=== PATIENT | female | born 1945 | race Hispanic/Latino ===

== ENCOUNTER 2018-03-01 06:50 | Inpatient (IN) | payer OTHER ==
[2018-03-01 06:56] VITALS: BMI 25.4
[2018-03-01] MEDS ORDERED: Ipratropium 0.02% Inhal Soln (0.5 mg/2.5 ml) UD IH STA (07:29)
[2018-03-01] MEDS ORDERED: Ipratropium 0.02% Inhal Soln (0.5 mg/2.5 ml) UD IH ONE (07:31)
--- NOTE | 2018-03-01 07:38 | ED PDOC ---
Arrival/HPI - General Chief Complaint: Shortness Of Breath Time Seen by Provider: 03/01/18 07:29 Historian: Patient - History of Present Illness Narrative History of Present Illness (Text): 03/01/18 07:20 72 year old female whose PMH includes hypertension, COPD, and celiac disease, who presents to the emergency department complaining of shortness of breath since 4 days ago that has become worse. Patient reports she was on a cruise and her symptom began. Patient denies coughing, fever, chest pain, abdominal pain, headache, dizziness, or other complaints. Time/Duration: < week Symptom Onset: Gradual Symptom Course: Worsening Past Medical History - Provider Review Nursing Documentation Reviewed: Yes - Cardiac Hx Hypertension: Yes - Pulmonary Hx Chronic Obstructive Pulmonary Disease (COPD): Yes - Hematological/Oncological Other/Comment: Celiac Disease - Musculoskeletal/Rheumatological Other/Comment: Sciatica - Psychiatric Hx Substance Use: No Family/Social History - Physician Review Nursing Documentation Reviewed: Yes Family/Social History: Unknown Family HX Smoking Status: Never Smoked Hx Alcohol Use: No Hx Substance Use: No Allergies/Home Meds Allergies/Adverse Reactions: Allergies Penicillins Allergy (Verified 03/01/18 06:57) VOMITING Home Medications: Home Meds Medication Instructions Recorded Confirmed Acetaminophen/Codeine 1 tab PO QID 03/01/18 03/01/18 [Tylenol/Codeine 300 MG/30 MG] Lansoprazole [Prevacid] 30 mg PO DAILY 03/01/18 03/01/18 Tiotropium [Spiriva] 18 mcg IH DAILY 03/01/18 03/01/18 Review of Systems - Review of Systems Constitutional: absent: Fevers Respiratory: SOB. absent: Cough, Sputum Cardiovascular: absent: Chest Pain Gastrointestinal: absent: Abdominal Pain Genitourinary Female: absent: Dysuria Musculoskeletal: absent: Back Pain Skin: absent: Rash Neurological: absent: Headache Endocrine: absent: Diaphoresis Physical Exam Vital Signs Reviewed: Yes Vital Signs Temp Pulse Resp BP Pulse Ox 03/01/18 09:14 89 17 115/54 L 93 L 03/01/18 07:28 25 H 100 03/01/18 07:03 97.6 F 100 H 24 126/77 100 Temperature: Afebrile Blood Pressure: Normal Pulse: Tachycardic Respiratory Rate: Normal Appearance: Positive for: Well-Appearing, Non-Toxic, Comfortable Pain Distress: None Mental Status: Positive for: Alert and Oriented X 3 - Systems Exam Head: Present: Atraumatic, Normocephalic Pupils: Present: PERRL Extroacular Muscles: Present: EOMI Conjunctiva: Present: Normal Respiratory/Chest: Present: Wheezes (scattered expiratory wheezing), Decreased Breath Sounds. No: Clear to Auscultation, Good Air Exchange, Accessory Muscle Use Cardiovascular: Present: Regular Rate and Rhythm, Normal S1, S2. No: Murmurs Abdomen: Present: Normal Bowel Sounds. No: Tenderness, Distention, Peritoneal Signs, Rebound, Guarding Lower Extremity: Present: Normal Inspection, NORMAL PULSES, Normal ROM, Neurovascularly Intact, Capillary Refill < 2 s. No: Edema, CALF TENDERNESS, Cyanosis, Tenderness, Swelling, Erythema, Deformity Neurological: Present: GCS=15, CN II-XII Intact, Speech Normal Skin: Present: Warm, Dry, Normal Color. No: Rashes Psychiatric: Present: Alert, Oriented x 3, Normal Insight, Normal Concentration Medical Decision Making ED Course and Treatment: 03/01/18 Impression: 72 year old female with scattered expiratory wheezing and decreased breath sounds complaining of shortness of breath. Plan: -- EKG -- Chest X-ray -- Labs -- Atrovent -- Reassess and disposition Progress Notes: 03/01/18 EKG: Ordered, reviewed, and independently interpreted the EKG. Rate : 91 BPM Rhythm : NSR Interpretation : Normal axis. QTC 408. No ST or T-wave changes 03/01/18 09:15 Chest X-ray: Creator : Rishabh Jimenez MD FINDINGS: LUNGS: Peribronchial thickening consistent with bronchitis. No evidence of pneumonia PLEURA: No significant pleural effusion identified, no pneumothorax apparent. CARDIOVASCULAR: Normal. OSSEOUS STRUCTURES: No significant abnormalities. VISUALIZED UPPER ABDOMEN: Normal. OTHER FINDINGS: None. IMPRESSION: Peribronchial thickening consistent with bronchitis. No evidence of pneumonia Case discussed with Dr. Valencia who agrees to admit the patient. Came to see patient in the ED. Would like Dr. Recinos for pulmonary consult. Dr. Recinos also saw the patient in the ED. Blood cultures drawn given leukocytosis. No evidence of pneumonia on CXR. - Lab Interpretations Lab Results: 03/01/18 07:28 03/01/18 07:28 Lab Results 03/01/18 07:28: Sodium 142, Chloride 102, Potassium 3.6, Carbon Dioxide 31, Anion Gap 13, BUN 12, Creatinine 0.5 L, Est GFR ( Amer) > 60, Est GFR ( Non-Af Amer) > 60, Random Glucose 135 H, Calcium 9.0, Magnesium 1.8, Lactate Dehydrogenase 657, Total Creatine Kinase 133, Troponin I < 0.01 03/01/18 07:28: pO2 205 H, VBG pH 7.32, VBG pCO2 60.0, VBG HCO3 30.9 H, VBG Total CO2 32.7 H, VBG O2 Sat (Calc) 99.9 H, VBG Base Excess 3.2 H, VBG Potassium 3.6, Sodium 141.0, Chloride 107.0, Glucose 142 H, Lactate 1.2, FiO2 21.0, Venous Blood Potassium 3.6 03/01/18 07:28: WBC 15.6 H, RBC 3.50, Hgb 9.7 L, Hct 31.0 L, MCV 88.6, MCH 27.7 , MCHC 31.3, RDW 15.2 H, Plt Count 340, MPV 8.6, Gran % 94.6 H, Lymph % (Auto) 2.9 L, [place] % (Auto) 2.4, Eos % (Auto) 0.0 L, Baso % (Auto) 0.1, Gran # 14.77 H , Lymph # (Auto) 0.5 L, [place] # (Auto) 0.4, Eos # (Auto) 0.0, Baso # (Auto) 0.01 , Neutrophils % (Manual) 97 H, Lymphocytes % (Manual) 2 L, Monocytes % (Manual) 1, Platelet Evaluation Normal I have reviewed the lab results: Yes - RAD Interpretation Radiology Orders: 03/01/18 07:30 CHEST PORTABLE [RAD] Stat Nanotechnologist: Radiologist - EKG Interpretation Interpreted by ED Physician: Yes Type: 12 lead EKG - Medication Orders Current Medication Orders: Albuterol/Ipratropium (Duoneb 3 Mg/0.5 Mg (3 Ml) Ud) 3 ml IH [id number] CECE Albuterol/Ipratropium (Duoneb 3 Mg/0.5 Mg (3 Ml) Ud) 3 ml IH Q2H PRN PRN Reason: Shortness of Breath Last Admin: 03/01/18 09:42 Dose: 3 ml Budesonide (Pulmicort Respules) 0.5 mg IH [id number] CECE Levofloxacin (Levaquin) 500 mg PO DAILY [facility] PRN Reason: Protocol Methylprednisolone (Solu-Medrol) 40 mg IVP Q6 [facility] Pantoprazole Sodium (Protonix Ec Tab) 40 mg PO DAILY [facility] Tiotropium [place] (Spiriva) 18 mcg IH DAILY [facility] Discontinued Medications Ipratropium [place] (Atrovent) 0.5 mg IH STAT STA Stop: 03/01/18 07:30 Last Admin: 03/01/18 07:47 Dose: 0.5 mg - Scribe Statement The provider has reviewed the documentation as recorded by the Luis Fernando Izquierdo Provider Matthewibe Attestation: All medical record entries made by the Matthewibe were at my direction and personally dictated by me. I have reviewed the chart and agree that the record accurately reflects my personal performance of the history, physical exam, medical decision making, and the department course for this patient. I have also personally directed, reviewed, and agree with the discharge instructions and disposition. Disposition/Present on Arrival - Present on Arrival Any Indicators Present on Arrival: No History of DVT/PE: No History of Uncontrolled Diabetes: No Urinary Catheter: No History of Decub. Ulcer: No History Surgical Site Infection Following: None - Disposition Have Diagnosis and Disposition been Completed?: Yes Diagnosis: Dyspnea, Emphysema of lung Disposition: HOSPITALIZED Disposition Time: 08:21 Condition: STABLE
[2018-03-01 07:53] LABS: BASO # 0.01 K/mm3 (0.0-2.0); BASO % 0.1 % (0.0-3.0); GRAN # 14.77 (1.4-6.5); GRAN % 94.6 % (50.0-68.0); HEMOGLOBIN 9.7 g/dL (12.0-16.0); LYMPH # 0.5 (1.2-3.4); LYMPH % 2.9 % (22.0-35.0); MEAN CELL VOLUME 88.6 fl (80.0-105.0); MEAN CORPUSCULAR HEMOGLOBIN 27.7 pg (25.0-35.0); MEAN CORPUSCULAR HGB CONC 31.3 g/dl (31.0-37.0); MEAN PLATELET VOLUME 8.6 fl (7.0-11.0); MONO # 0.4 (0.1-0.6); MONO % 2.4 % (1.0-6.0); PLATELET COUNT 340 10^3/uL (120.0-450.0); RED CELL DISTRIBUTION WIDTH 15.2 % (11.5-14.5); WHITE BLOOD COUNT 15.6 10^3/ul (4.5-11.0)
[2018-03-01 08:01] LABS: VENOUS BLOOD GAS BASE EXCESS 3.2 mmol/L (0.0-2.0); VENOUS BLOOD GAS PO2 205 mm/Hg (30-55); VENOUS BLOOD PH 7.32 (7.32-7.43)
[2018-03-01 08:08] LABS: BLOOD UREA NITROGEN 12 mg/dL (7-21); GFR AFRICAN-AMERICAN > 60; GFR NON-AFRICAN AMERICAN > 60
[2018-03-01 08:19] LABS: TROPONIN I < 0.01 ng/mL
[2018-03-01 08:25] LABS: LYMPHOCYTE 2 % (22.0-35.0); MONOCYTE 1 % (1.0-6.0); NEUTROPHIL 97 % (50.0-70.0); PLATELET ESTIMATE NORMAL (NORMAL)
[2018-03-01] MEDS ORDERED: Albuterol-Ipratrop 3 mg / 0.5 (3 ml) UD IH PRN (08:29)
--- NOTE | 2018-03-01 09:14 | RAD ---
Date of service: 03/01/2018 HISTORY: dyspnea COMPARISON: No prior. FINDINGS: LUNGS: Peribronchial thickening consistent with bronchitis. No evidence of pneumonia PLEURA: No significant pleural effusion identified, no pneumothorax apparent. CARDIOVASCULAR: Normal. OSSEOUS STRUCTURES: No significant abnormalities. VISUALIZED UPPER ABDOMEN: Normal. OTHER FINDINGS: None. IMPRESSION: Peribronchial thickening consistent with bronchitis. No evidence of pneumonia
[2018-03-01] MEDS ORDERED: Tiotropium 18 mcg Cap For Inhalation IH SCH (10:00)
[2018-03-01] MEDS ORDERED: levoFLOXacin 500 MG TAB PO SCH (10:00)
--- NOTE | 2018-03-01 10:57 | CON ---
DATE: 03/01/2018 PULMONARY CONSULTATION REFERRING PHYSICIAN: Dr. Domingo Valencia.. REASON FOR CONSULTATION: Chronic obstructive pulmonary disease. HISTORY OF PRESENT ILLNESS: The patient is a 72-year-old female, with past medical history significant for chronic obstructive pulmonary disease, hypertension, celiac disease, who presents to [facility] - transferred from the cruise ship - with increasing shortness of breath at rest, dyspnea on exertion, cough and sputum production for the past 4 days. There is no history of chest pain, coughing up of blood or chest pain - made worse with deep respirations. There is no history of temperatures, chills or infectious exposure. There is no history of night sweats, weight loss or appetite change prior to the above events. No history of leg or calf pains. No history of syncope or diaphoresis. No history of recent trauma. REVIEW OF SYSTEMS: No history of nausea, vomiting or diarrhea. No acute urinary symptoms. No new neurologic complaints. No new musculoskeletal complaints. Rest of the review of systems is negative. ALLERGIES: TO PENICILLIN. SOCIAL HISTORY: Positive for former tobacco usage for many years, no alcohol. FAMILY HISTORY: No inheritable diseases. HOME MEDICATIONS: Include acetaminophen, Spiriva, Prevacid. PHYSICAL EXAMINATION: GENERAL: The patient is mildly short of breath at the present time, but in no acute distress. VITAL SIGNS: Temperature is 97.6, pulse is 91, respirations 22, blood pressure 126/77. Oxygen saturation on nasal cannula is 97%. HEENT: Normocephalic and atraumatic. No JVD. CARDIOVASCULAR: Positive S1, S2. No S3 gallop. LUNGS: Decreased breath sounds at the bases. Scattered bilateral rhonchi and wheezing are appreciated. EXTREMITIES: No clubbing, cyanosis or edema. Calves are nontender to palpation. GI: Abdomen is soft, nontender and nondistended. Bowel sounds are positive. SKIN: No acute rash. NEUROLOGIC: Limited at the present time. PERTINENT LABORATORY DATA: Chest x-ray was done and reviewed. I do not appreciate any new or significant infiltrates. Official results are pending. Complete metabolic profile: Glucose 135. Rest of the metabolic profile is within normal limits. CBC: White count 15.6K, hemoglobin 9.7, hematocrit 31, platelets of 340,000. IMPRESSION: 1. Acute bronchitis. 2. Chronic obstructive pulmonary disease. 3. Anemia. 4. Celiac disease. PLAN: The patient presents to [facility] - transferred from the cruise ship - with a 4-day history of worsening pulmonary symptoms. Again, I did review the chest x-ray as above. I do not appreciate any new or significant infiltrates. Official results are pending. On physical exam, the patient is in moderately severe bronchospasm. I will start the patient on frequent nebulizer treatments,inhaled steroids and high-dose intravenous Solu-Medrol. In addition,because of her age and above diagnoses, I will also start oral antibiotic therapy. There is no history of temperatures. There is a mild leukocytosis. The patient will be admitted for close observation and treatment. I did discuss the above with Dr. Valencia at length. Thank you very much for this pulmonary consultation. Quentin Recinos MD [facility]
[2018-03-01] MEDS: MethylPREDNISolone 40 mg Vial IVP SCH ×2 (12:44→17:09)
[2018-03-01] MEDS: Albuterol-Ipratrop 3 mg / 0.5 (3 ml) UD IH SCH ×2 (13:39→20:19)
--- NOTE | 2018-03-01 15:14 | CP.PCM.CON ---
History of Present Illness - History of Present Illness History of Present Illness: 72 year old male with PMH of HTN, COPD, celiac disease, sciatica was brought in [place] [facility] [place] because of worsening shortness of breath associated with dry cough for the last 4 days while on the cruise. She mentions being in the [facility] but she denies animal contacts, denies insect bites. She denies fever or chills, no nausea or vomiting, no chest pain or palpitations, no headache or dizziness, no sore throat, no rhinorrhea, no abdominal pain, no diarrhea, no dysuria. CXR is showing emphysema and bronchitis, and CBC is showing leukocytosis. Infectious Diseases consult is requested to further evaluate and manage. Review of Systems - Review of Systems All systems: reviewed and no additional remarkable complaints except (as per HPI ) Past Patient History - Past Social History Smoking Status: Never Smoked - CARDIAC Hx Hypertension: Yes - PULMONARY Hx Chronic Obstructive Pulmonary Disease (COPD): Yes - HEMATOLOGICAL/ONCOLOGICAL Other/Comment: Celiac Disease - MUSCULOSKELETAL/RHEUMATOLOGICAL Other/Comment: Sciatica - PSYCHIATRIC Hx Substance Use: No Meds Allergies/Adverse Reactions: Allergies Allergy/AdvReac Type Severity Reaction Status Date / Time Penicillins Allergy VOMITING Verified 03/01/18 06:57 - Medications Medications: Current Medications Albuterol/Ipratropium (Duoneb 3 Mg/0.5 Mg (3 Ml) Ud) 3 ml IH [id number] CECE Albuterol/Ipratropium (Duoneb 3 Mg/0.5 Mg (3 Ml) Ud) 3 ml IH Q2H PRN PRN Reason: Shortness of Breath Last Admin: 03/01/18 09:42 Dose: 3 ml Budesonide (Pulmicort Respules) 0.5 mg IH [id number] CECE Levofloxacin (Levaquin) 750 mg PO DAILY [facility] PRN Reason: Protocol Stop: 03/05/18 10:01 Methylprednisolone (Solu-Medrol) 40 mg IVP Q6 CECE Pantoprazole Sodium (Protonix Ec Tab) 40 mg PO DAILY [facility] Physical Exam - Constitutional Appears: Chronically Ill - Head Exam Head Exam: NORMAL INSPECTION - ENT Exam ENT Exam: Mucous Membranes Moist - Neck Exam Neck exam: Negative for: Meningismus - Respiratory Exam Respiratory Exam: Decreased Breath Sounds, Wheezes - Cardiovascular Exam Cardiovascular Exam: +S1, +S2 - GI/Abdominal Exam GI & Abdominal Exam: Soft. absent: Tenderness Results - Vital Signs Recent Vital Signs: Last Vital Signs Temp 97.6 F 03/01/18 07:03 Pulse 89 03/01/18 09:44 Resp 17 03/01/18 09:14 BP 115/54 L 03/01/18 09:14 Pulse Ox 93 L 03/01/18 09:14 - Labs Result Diagrams: 03/01/18 07:28 03/01/18 07:28 Assessment & Plan - Assessment and Plan (Free Text) Plan: Assessment systemic inflammatory response syndrome, consider due to acute bronchitis in this patient with emphysema HTN COPD celiac disease sciatica Plan Started patient on Levaquin and patient is on bronchodilators, steroids will monitor clinically
[2018-03-01] MEDS ORDERED: ACETAMINOPHEN PO PRN (17:25)
[2018-03-01] MEDS ORDERED: CODEINE PO PRN (17:25)
--- NOTE | 2018-03-01 17:34 | CARD ---
APPROVED REPORT Date of service: 03/01/2018 EKG Measurement Heart [id number] <Conclusion> Sinus rhythm normal ECG
--- NOTE | 2018-03-01 18:23 | HP ---
HISTORY OF PRESENT ILLNESS: Manuela comes from a cruise ship. She is from [place], and she was not feeling well with breathing and she got off the cruise ship while she was in [place] before she would go to [place], and went to the hospital as she was having very much short of breath. She is a 72-year-old female, who was acutely short of breath for 4 days, got worse, also wheezing on the cruise ship. PAST MEDICAL HISTORY: Hypertension, COPD, celiac disease. She has had sciatica in the past. FAMILY HISTORY: Unknown family history. SOCIAL HISTORY: Never smoked. No alcohol. No drugs. ALLERGIES: PENICILLIN ALLERGY. MEDICATIONS: She takes codeine every now and then, Prevacid, Spiriva. REVIEW OF SYSTEMS: No fevers. There is shortness of breath, occasional cough, occasional wheeze. No chest pain or palpitation. No abdominal pain, nausea, or vomiting. No problems urinating. No back pain. No skin rashes that she knows of. No headache, not anxious, not sweating. PHYSICAL EXAMINATION: VITAL SIGNS: She has a 97.6 temperature, 100 pulse, 24 respiratory rate, 126/77 blood pressure, 100% O2 sat on non-rebreather that is 50%. GENERAL: She is uncomfortable, but well-appearing, definitely has shortness of breath. Alert and oriented x3. HEENT: Head is atraumatic, normocephalic. Extraocular muscles are intact. Pupils are equal and reactive to light. Throat is dry. HEART: Regular rate. Normal S1, S2. LUNGS: Wheezes scattered bilaterally, expiratory and inspiratory; decreased breath sounds, although she never smoked, she sounds like a smoker. ABDOMEN: Nontender. Positive bowel sounds. No guarding, rebound, or CVA tenderness. EXTREMITIES: No edema. She can move all four extremities well. NEUROLOGIC: GCS is 15. Cranial nerves II thorough XII are grossly intact. Alert and oriented x3. Speech is normal. SKIN: Warm and dry. No apparent rashes or ulcers appreciated. LYMPHATICS: Thyroid is midline. No palpable lymphadenopathy appreciated. LABORATORY DATA: She had a bunch of tests ordered. She has a 205 pO2 on 50% non-rebreather. Sugar was 142, high. A 15.6 white count, 9.7 hemoglobin, 31 hematocrit with a 340 platelets. Sodium 142, potassium of 3.6, BUN 12, creatinine 0.5, GFR is greater than 60, sugar is 135, calcium is 9, total creatinine kinase is 133, magnesium 1.8, lactate dehydrogenase is 657. Troponin I is less than 0.01. She has a chest x-ray pending. ASSESSMENT AND PLAN: She has a consult with Pulmonary and Infectious Disease for the elevated white count. Coming [place] a cruise ship. She will be on IV Solu-Medrol, DuoNeb. We will check on her labs. She is here for acute exacerbation of chronic obstructive pulmonary disease and emphysema. Domingo Valencia DO
[2018-03-01] MEDS: Budesonide 0.5 mg/2 ml Inhal Susp UD IH SCH (20:19)
[2018-03-01] MEDS: ACETAMINOPHEN PO PRN (21:26)
[2018-03-01] MEDS: CODEINE PO PRN (21:26)
[2018-03-02] MEDS: MethylPREDNISolone 40 mg Vial IVP SCH ×5 (00:30→22:27)
[2018-03-02] MEDS: Albuterol-Ipratrop 3 mg / 0.5 (3 ml) UD IH SCH ×4 (02:00→20:05)
[2018-03-02 06:35] LABS: HEMOGLOBIN 10.2 g/dL (12.0-16.0); MEAN CELL VOLUME 88.3 fl (80.0-105.0); MEAN CORPUSCULAR HEMOGLOBIN 27.8 pg (25.0-35.0); MEAN CORPUSCULAR HGB CONC 31.5 g/dl (31.0-37.0); MEAN PLATELET VOLUME 9.1 fl (7.0-11.0); RBC 3.67 10^6/uL (3.5-6.1); RED CELL DISTRIBUTION WIDTH 15.2 % (11.5-14.5); WHITE BLOOD COUNT 13.1 10^3/ul (4.5-11.0)
[2018-03-02 07:07] LABS: ALB/GLOB RATIO 1.3 (1.1-1.8); ALBUMIN 3.5 g/dL (3.0-4.8); ALT/SGPT 38 U/L (7-56); AST/SGOT 57 U/L (14-36); BLOOD UREA NITROGEN 13 mg/dL (7-21); CALCIUM 8.8 mg/dL (8.4-10.5); GFR AFRICAN-AMERICAN > 60; GFR NON-AFRICAN AMERICAN > 60
--- NOTE | 2018-03-02 07:25 | PN ---
DATE: 03/02/2018 PULMONARY NOTE SUBJECTIVE: The patient is comfortable at rest this morning. She is not short of breath. PHYSICAL EXAMINATION: VITAL SIGNS: (Last noted in the computer): Temperature is 98.4, pulse this morning 88, respiratory rate 18, blood pressure 139/71. Oxygen saturation on nasal cannula is 94%. HEENT: Normocephalic, atraumatic. No JVD. CARDIOVASCULAR: Positive S1, S2. No S3 gallop. LUNGS: Decreased breath sounds at the bases. Less rhonchi. Less wheezing. EXTREMITIES: No clubbing, cyanosis or edema. Calves are nontender to palpation. GI: Abdomen is soft, nontender and nondistended. Bowel sounds are positive. SKIN: No acute rash. NEUROLOGIC: Limited at the present time. IMPRESSION: 1. Acute bronchitis. 2. Chronic obstructive pulmonary disease - probably advanced. 3. Anemia. 4. Celiac disease. PLAN: The patient appears more comfortable this morning. She is not short of breath at rest. She does state to feeling a little better overall. On physical exam, there is certainly less bronchospasm noted. I will continue with the current nebulizer treatments and decrease the intravenous steroids this morning. The patient remains on oral antibiotic therapy - as per Infectious Disease. There are no temperatures noted. Repeat a.m. labs are pending. Clinical status of the patient is certainly improved - compared to yesterday. I would like to see the patient out of bed more often. I will discuss the above with Dr. Valencia. Quentin Recinos MD [facility]
[2018-03-02] MEDS: Budesonide 0.5 mg/2 ml Inhal Susp UD IH SCH ×2 (08:22→20:06)
[2018-03-02] MEDS: levoFLOXacin 750 MG TAB PO SCH (09:54)
[2018-03-02] MEDS: Pantoprazole 40 mg EC Tab PO SCH (09:55)
--- NOTE | 2018-03-02 11:18 | PN ---
DATE: 03/02/2018 SUBJECTIVE: The patient is in bed, in no acute distress. Patient is seen earlier. She is doing better. Her breathing is much improved. PHYSICAL EXAMINATION: VITAL SIGNS: On exam, temperature is 97, blood pressure is 113/60, respiratory rate of 22, heart rate of 109. HEENT: Examination of HEENT is unremarkable. NECK: Supple. LUNGS: Have decreased breath sounds. HEART: Normal S1, S2. ABDOMEN: Soft, nontender. LABORATORY DATA: Laboratory examination reveals a white count of 15,600, hemoglobin of 9, platelets of 340. Chemistries reveals a BUN of 12, creatinine of 0.5, procalcitonin is 0.05. Dr. Recinos's progress note is reviewed from today, which states the patient has acute bronchitis and chronic obstructive pulmonary disease, probably advanced, with anemia and a history of celiac disease. ASSESSMENT AND PLAN: A 72-year-old female with hypertension, chronic obstructive pulmonary disease, celiac disease, sciatica, who is [place] cruise [place]. She lives in [place], admitted with systemic inflammatory response syndrome with acute bronchitis and emphysema and hypertension. Currently on Levaquin and bronchodilators with negative procalcitonin. The Levaquin is p.o. The patient is also on Solu-Medrol. Sukhwinder Balderrama MD
--- NOTE | 2018-03-02 14:54 | PN ---
DATE: 03/02/2018 SUBJECTIVE: I see Manuela sitting out of bed to chair. She is from a cruise ship. She has severe shortness of breath. She is actually on oxygen, sitting at rest, and she is still short of breath, looking at me. She is on her DuoNeb, amitriptyline. HOME MEDICATIONS: Levaquin, Norvasc, Protonix, Pulmicort, and Solu-Medrol 40 IV every 8 hours. PHYSICAL EXAMINATION: VITAL SIGNS: She has a 97 temperature, 82 pulse, 113/60 blood pressure, 22 respiratory rate, 97% O2 sat on 4 liters nasal cannula. HEENT: Head is atraumatic, normocephalic. HEART: Regular rate. LUNGS: Decreased breath sounds, almost no air movement at all. Even when she has a cough, I do not hear any air movement. No rhonchi. Wheezes are gone. ABDOMEN: Soft. EXTREMITIES: No edema. Quite short of breath even when she walked from the bed to the chair, two feet away. LABORATORY DATA: She has a 13.1 white count, 10.2 hemoglobin, 32.4 hematocrit with 334 platelets. She has a 141 sodium, potassium 3.8, BUN 13, creatinine 0.5, GFR is grater than 60, sugar is 135, calcium is 8.8. Total bilirubin is 0.4, AST is 57, ALT is 38, alkaline phosphatase 60. Troponin I is less than 0.01. Total protein 6.2. Procalcitonin less than 0.05. She is having acute exacerbation of chronic obstructive pulmonary disease, quite shortness of breath. That is why, we did not decrease Solu-Medrol, we kept at 40. I do not think she has improved yet at all. We will continue aggressive treatment and care on Manuela Yang who is here with chronic obstructive pulmonary disease acute exacerbation, anemia, acute bronchitis, and celiac disease. We will follow up very closely. Check her labs tomorrow. Physical Domingo Valencia DO MTDAngie
[2018-03-02] MEDS: ACETAMINOPHEN PO PRN (22:30)
[2018-03-02] MEDS: CODEINE PO PRN (22:30)
[2018-03-03] MEDS: Albuterol-Ipratrop 3 mg / 0.5 (3 ml) UD IH SCH ×4 (01:15→20:12)
[2018-03-03 06:59] LABS: ALB/GLOB RATIO 1.4 (1.1-1.8); ALBUMIN 3.7 g/dL (3.0-4.8); BLOOD UREA NITROGEN 16 mg/dL (7-21); GFR AFRICAN-AMERICAN > 60; GFR NON-AFRICAN AMERICAN > 60
[2018-03-03 07:00] LABS: ALT/SGPT 39 U/L (7-56); AST/SGOT 38 U/L (14-36)
[2018-03-03 07:05] LABS: HEMOGLOBIN 10.9 g/dL (12.0-16.0); MEAN CELL VOLUME 87.1 fl (80.0-105.0); MEAN CORPUSCULAR HGB CONC 32.2 g/dl (31.0-37.0); MEAN PLATELET VOLUME 9.1 fl (7.0-11.0); RBC 3.89 10^6/uL (3.5-6.1); WHITE BLOOD COUNT 10.3 10^3/ul (4.5-11.0)
--- NOTE | 2018-03-03 07:19 | PN ---
DATE: 03/03/2018 PULMONARY NOTE SUBJECTIVE: The patient appears comfortable this morning. She is not short of breath at rest. OBJECTIVE: VITAL SIGNS: Last temperature recorded was 98.0, pulse this morning is approximately 88, respiratory rate 18/20, blood pressure 125/68. Oxygen saturation on room air - 90%. Oxygen saturation on nasal cannula - 97%. HEENT: Normocephalic, atraumatic. No JVD. CARDIOVASCULAR: Positive S1, S2. No S3 gallop. LUNGS: Improved breath sounds at the bases. Still with mild rhonchi and wheezing bilaterally - less overall. EXTREMITIES: No clubbing, cyanosis or edema. Calves are nontender to palpation. GI: Abdomen is soft, nontender and nondistended. Bowel sounds are positive. SKIN: No acute rash. NEUROLOGIC: Exam limited at the present time. IMPRESSION: 1. Acute bronchitis. 2. Chronic obstructive pulmonary disease - probably advanced. 3. Anemia. 4. Celiac disease. PLAN: The patient appears comfortable this morning. She is not short of breath at rest. She does state to feeling much better overall this morning. On physical exam, the patient's bronchospasm is slowly resolving. I will continue with the current nebulizer treatments and current intravenous steroids (decreased yesterday) for now. We should be able to continue the steroid taper in the morning. The patient remains on antibiotic therapy - as per Infectious Disease. There are no temperatures noted. The leukocytosis is resolving. Clinical status of the patient is significantly improved overall. However, it does appear that her future status/prognosis does remain guarded. The patient should have a full pulmonary workup - including pulmonary function testing - when her bronchospasm is completely resolved. I will discuss the above with Dr. Valencia. Quentin Recinos MD [facility]
[2018-03-03] MEDS: Budesonide 0.5 mg/2 ml Inhal Susp UD IH SCH ×2 (07:43→20:12)
[2018-03-03] MEDS: MethylPREDNISolone 40 mg Vial IVP SCH ×3 (09:53→23:40)
[2018-03-03] MEDS: CODEINE PO PRN ×2 (09:56→23:15)
[2018-03-03] MEDS: Pantoprazole 40 mg EC Tab PO SCH (09:56)
[2018-03-03] MEDS: ACETAMINOPHEN PO PRN ×2 (09:56→23:15)
[2018-03-03] MEDS: levoFLOXacin 750 MG TAB PO SCH (10:00)
--- NOTE | 2018-03-03 11:06 | PN ---
DATE: 03/03/2018 SUBJECTIVE: I saw Manuela resting comfortably in bed. She slept fairly well. [place] She is finally starting to breathe a little bit better. She is eating a little bit better. She is able to walk to the chair, walks to the bathroom which is also good. PHYSICAL EXAMINATION: VITAL SIGNS: She has a 97.7 temperature, 85 pulse, 119/60 blood pressure, 21 respiratory rate, 93% O2 sat on 3 liters. HEENT: Head: Atraumatic, normocephalic. HEART: Regular rate. LUNGS: Decreased breath sounds, moving more air. There is congestion, but it is moving and submucous is starting to cough up. ABDOMEN: Soft, nontender. EXTREMITIES: No edema. LABORATORY DATA: She has a 10.3 white count coming down nicely, 10.9 hemoglobin, 33.9 hematocrit with 354 platelets. She has a 141 sodium, potassium 4.3, BUN is 60, creatinine 0.6, GFR is greater than 60, sugar is 141, calcium is 9. Total bili is 0.4, AST is 38, ALT is 39, alkaline phosphatase 59. Total protein 6.2, so she is starting to improve with her COPD. She is being seen by Infectious Disease and Pulmonary. She is on albuterol, Solu-Medrol is down to 40 every 8. We will continue with aggressive treatment and care. I think she is improving. End of dictation on Manuela Yang for acute COPD, emphysema, anemia. Thank you very much. Domingo Valencia DO
--- NOTE | 2018-03-03 13:48 | PN ---
DATE: 03/03/2018 SUBJECTIVE: The patient is seen in bed, in no acute distress. She is nontoxic. She is awake and alert. PHYSICAL EXAMINATION VITAL SIGNS: Temperature is 98, blood pressure is 112/70, respiratory rate 16. HEENT: Unremarkable. NECK: Supple. LUNGS: Have decreased breath sounds. HEART: Normal S1 and S2. ABDOMEN: Soft, nontender. LABORATORY DATA: Reveals a white count is down to 10,000, hemoglobin of 10, platelets of 354. Chemistries are noted with a procalcitonin 0.05. Microbiology reveals no growth and review of orders reveals the patient to be on p.o. Levaquin, IV Solu-Medrol. Dr. Recinos's note from this morning is appreciated and he states that the patient has acute bronchitis, advanced COPD, anemia. ASSESSMENT AND PLAN: A 72-year-old female seen earlier today in [facility], bed 2, with chronic obstructive lung disease, which is advanced and celiac disease and sciatica, and was from the cruise ship, she lives in [place], with systemic inflammatory response syndrome, acute bronchitis, emphysema and hypertension, on Levaquin with a negative procalcitonin, negative cultures and IV Solu-Medrol. Maybe able to complete the p.o. Levaquin short course therapy at 5 days. Sukhwinder Balderrama MD
[2018-03-04] MEDS: Albuterol-Ipratrop 3 mg / 0.5 (3 ml) UD IH SCH ×4 (02:05→20:03)
[2018-03-04 07:02] LABS: HEMOGLOBIN 10.7 g/dL (12.0-16.0); MEAN CELL VOLUME 86.1 fl (80.0-105.0); MEAN CORPUSCULAR HEMOGLOBIN 27.5 pg (25.0-35.0); MEAN CORPUSCULAR HGB CONC 31.9 g/dl (31.0-37.0); MEAN PLATELET VOLUME 8.7 fl (7.0-11.0); RBC 3.89 10^6/uL (3.5-6.1); RED CELL DISTRIBUTION WIDTH 14.9 % (11.5-14.5); WHITE BLOOD COUNT 9.4 10^3/ul (4.5-11.0)
[2018-03-04 07:17] LABS: ALB/GLOB RATIO 1.3 (1.1-1.8); ALBUMIN 3.6 g/dL (3.0-4.8); ALT/SGPT 40 U/L (7-56); AST/SGOT 33 U/L (14-36); BLOOD UREA NITROGEN 20 mg/dL (7-21); CALCIUM 8.8 mg/dL (8.4-10.5); GFR AFRICAN-AMERICAN > 60; GFR NON-AFRICAN AMERICAN > 60
--- NOTE | 2018-03-04 07:19 | PN ---
DATE: 03/04/2018 PULMONARY NOTE DICTATION SUBJECTIVE: The patient appears comfortable this morning. She is not short of breath at rest. PHYSICAL EXAMINATION: VITAL SIGNS: Last temperature recorded is 97.8, pulse this morning is 88, respiratory rate 18/20, last blood pressure recorded is 119/62. Oxygen saturation on nasal cannula is 92%. HEENT: Normocephalic, atraumatic. No JVD. CARDIOVASCULAR: Positive S1, S2. No S3 gallop. LUNGS: Much less rhonchi and wheezing - compared to few days ago. EXTREMITIES: No clubbing, cyanosis or edema. Calves are nontender to palpation. GI: Abdomen is soft, nontender and nondistended. Bowel sounds are positive. SKIN: No acute rash. NEUROLOGIC: Limited at the present time. IMPRESSION: 1. Acute bronchitis. 2. Chronic obstructive pulmonary disease - probably advanced. 3. Anemia. 4. Celiac disease. PLAN: The patient appears comfortable this morning. She is not short of breath at rest. She is less dyspneic on exertion. She does state to feeling much better overall. On physical exam, her bronchospasm continues to slowly resolve. I will continue the current nebulizer treatments and decrease the intravenous steroids this morning. The patient remains on antibiotic therapy - as per Infectious Disease. There are no temperatures noted. The leukocytosis has now fully resolved. Clinical status of the patient is significantly improved overall. As above, the patient probably has advanced chronic obstructive pulmonary disease. She has seen a corrections corporal in the past - in [place]. She does not follow up regularly. I did strongly advise her - that her chronic obstructive pulmonary disease needs to be closely followed when she gets back home. She agrees. I will discuss the above with Dr. Valencia. Quentin Recinos MD MTDD
[2018-03-04] MEDS: Budesonide 0.5 mg/2 ml Inhal Susp UD IH SCH ×2 (07:53→20:03)
[2018-03-04] MEDS: MethylPREDNISolone 40 mg Vial IVP SCH ×2 (09:54→23:01)
[2018-03-04] MEDS: Pantoprazole 40 mg EC Tab PO SCH (09:54)
[2018-03-04] MEDS: levoFLOXacin 750 MG TAB PO SCH (09:59)
--- NOTE | 2018-03-04 11:55 | PN ---
DATE: 03/04/2018 SUBJECTIVE: [place]. She is short of breath. She has cough and congestion. She is on DuoNebs, Elavil, Levaquin, Norvasc, Protonix, Pulmicort and Solu-Medrol 40 IV every 12 hours. OBJECTIVE: VITAL SIGNS: She has a 98.1 temperature, 90 pulse, 122/71 blood pressure, 22 respiratory rate, 93% O2 sat on 4 liters nasal cannula, she was as low as 89 on room air last night. GENERAL: She is alert, comfortable, coughing, weak but walks to the bathroom and back. HEENT: Head is atraumatic, normocephalic. HEART: Regular rate. LUNGS: Decreased breath sounds bilaterally. , but at least it is moving. ABDOMEN: Soft. EXTREMITIES: No edema. DATA: She has a 9.4 white count, 10.7 hemoglobin, 32.5 hematocrit with 369 platelets, that is the best the white count has been. antibiotics are working. Sodium 139, potassium 4.2, BUN 20, creatinine 0.7. GFR is greater than 60. Sugar is 145. Calcium is 8.8, total bili is 0.4, AST is 33, ALT is 40, alkaline phosphatase 54, total protein 6.3. She is being seen by Pulmonary and Infectious Disease. We will continue with aggressive treatment and care. She has severe emphysema, COPD, a little anemic, acute bronchitis, possible pneumonia and we will slowly help getting rid of the Solu-Medrol, but she needs it. We will check labs tomorrow. Out of bed to chair. Domingo Valencia DO YOJANA
[2018-03-04 12:19] VITALS: RESP 20
--- NOTE | 2018-03-04 16:13 | CP.PCM.PN ---
Subjective - Date & Time of Evaluation Date of Evaluation: 03/04/18 Time of Evaluation: 13:00 - Subjective Subjective: Patient is comfortable in bed but still with shortness of breath on exertion and still with cough and feels her phlegm is still trapped in her chest. No fevers. Objective - Vital Signs/Intake and Output Vital Signs (last 24 hours): Temp Pulse Resp BP Pulse Ox 98.1 F 90 22 122/71 93 L 03/04/18 08:06 03/04/18 08:06 03/04/18 08:06 03/04/18 08:06 03/04/18 08:06 Intake and Output: 03/04/18 03/04/18 06:59 18:59 Intake Total 980 120 Balance 980 120 - Medications Medications: Current Medications Albuterol/Ipratropium (Duoneb 3 Mg/0.5 Mg (3 Ml) Ud) 3 ml [facility] [id number] [facility] Last Admin: 03/04/18 07:53 Dose: 3 ml Albuterol/Ipratropium (Duoneb 3 Mg/0.5 Mg (3 Ml) Ud) 3 ml IH Q2H PRN PRN Reason: Shortness of Breath Last Admin: 03/01/18 09:42 Dose: 3 ml Amitriptyline HCl (Elavil) 50 mg PO HS [facility] Last Admin: 03/03/18 23:12 Dose: 50 mg Amlodipine Besylate (Norvasc) 5 mg PO BID [facility] Last Admin: 03/04/18 09:54 Dose: 5 mg Budesonide (Pulmicort Respules) 0.5 mg [facility] [id number] [facility] Last Admin: 03/04/18 07:53 Dose: 0.5 mg Home Med (Home Med) 1 unit PO BID PRN PRN Reason: Muscle spasm Last Admin: 03/03/18 23:15 Dose: 1 unit Levofloxacin (Levaquin) 750 mg PO DAILY [facility] PRN Reason: Protocol Stop: 03/05/18 10:01 Last Admin: 03/04/18 09:59 Dose: 750 mg Methylprednisolone (Solu-Medrol) 40 mg IVP Q12 [facility] Last Admin: 03/04/18 09:54 Dose: 40 mg Pantoprazole Sodium (Protonix Ec Tab) 40 mg PO DAILY [facility] Last Admin: 03/04/18 09:54 Dose: 40 mg - Labs Labs: 03/04/18 06:30 03/04/18 06:30 - Constitutional Appears: Non-toxic, Chronically Ill - Head Exam Head Exam: NORMAL INSPECTION - ENT Exam ENT Exam: Mucous Membranes Moist - Neck Exam Neck Exam: absent: Meningismus - Respiratory Exam Respiratory Exam: Decreased Breath Sounds, Wheezes - Cardiovascular Exam Cardiovascular Exam: +S1, +S2 - GI/Abdominal Exam GI & Abdominal Exam: Soft. absent: Tenderness Assessment and Plan - Assessment and Plan (Free Text) Plan: Assessment systemic inflammatory response syndrome, consider due to acute bronchitis in this patient with emphysema HTN COPD celiac disease sciatica Plan continue Levaquin day 4 to complete 5 days of therapy patient is also on bronchodilators, steroids and may benefit from chest PT will continue to monitor clinically
[2018-03-04] MEDS: CODEINE PO PRN (23:04)
[2018-03-04] MEDS: ACETAMINOPHEN PO PRN (23:04)
[2018-03-05] MEDS: Albuterol-Ipratrop 3 mg / 0.5 (3 ml) UD IH SCH ×4 (01:11→19:53)
[2018-03-05 06:44] LABS: HEMOGLOBIN 11.2 g/dL (12.0-16.0); MEAN CELL VOLUME 86.4 fl (80.0-105.0); MEAN CORPUSCULAR HEMOGLOBIN 27.2 pg (25.0-35.0); MEAN CORPUSCULAR HGB CONC 31.5 g/dl (31.0-37.0); MEAN PLATELET VOLUME 9.2 fl (7.0-11.0); RBC 4.12 10^6/uL (3.5-6.1); WHITE BLOOD COUNT 8.2 10^3/ul (4.5-11.0)
[2018-03-05 07:12] LABS: ALB/GLOB RATIO 1.4 (1.1-1.8); ALBUMIN 3.5 g/dL (3.0-4.8); ALT/SGPT 23 U/L (7-56); AST/SGOT 26 U/L (14-36); BLOOD UREA NITROGEN 18 mg/dL (7-21); GFR AFRICAN-AMERICAN > 60; GFR NON-AFRICAN AMERICAN > 60
[2018-03-05] MEDS: Budesonide 0.5 mg/2 ml Inhal Susp UD IH SCH ×2 (07:35→19:53)
--- NOTE | 2018-03-05 08:00 | PN ---
Copied To: Quentin Recinos MD Attending MD: Quentin Recinos MD. DATE: 03/05/2018 PULMONARY NOTE SUBJECTIVE: The patient appears comfortable this morning. She is not short of breath at rest. OBJECTIVE: VITAL SIGNS: Last temperature recorded is 97.2, pulse this morning is approximately 88, respiratory rate 18/20, last blood pressure recorded is 119/59. Oxygen saturation on nasal cannula is 93-97%. HEENT: Normocephalic, atraumatic. No JVD. CARDIOVASCULAR: Positive S1, S2. No S3 gallop. LUNGS: Minimal rhonchi. A few expiratory wheezes - much less. EXTREMITIES: No clubbing, cyanosis or edema. Calves are nontender to palpation. GI: Abdomen is soft, nontender and nondistended. Bowel sounds are positive. SKIN: No acute rash. NEUROLOGIC: Exam limited at the present time. IMPRESSION: 1. Acute bronchitis. 2. Chronic obstructive pulmonary disease - probably advanced. 3. Anemia. 4. Celiac disease. PLAN: The patient appears comfortable this morning. She is not short of breath at rest. She is less dyspneic on exertion. She does state to feeling much better overall. On physical exam, her bronchospasm continues to slowly resolve. In addition, the alveolar-arterial gradient is also less. I will continue with the current nebulizer treatments and decrease the intravenous steroids this morning. The patient remains on antibiotic therapy - as per Infectious Disease. There are no temperatures noted. The leukocytosis has fully resolved. Clinical status of the patient is significantly improved - compared to the initial presentation. However, the future status/prognosis for this patient does remain somewhat guarded. I will discuss the above with Dr. Valencia. Quentin Recinos MD MTDD
[2018-03-05] MEDS: MethylPREDNISolone 40 mg Vial IVP SCH ×2 (09:09→22:27)
[2018-03-05] MEDS: levoFLOXacin 750 MG TAB PO SCH (09:10)
[2018-03-05] MEDS: Pantoprazole 40 mg EC Tab PO SCH (09:10)
--- NOTE | 2018-03-05 13:17 | PN ---
Copied To: Domingo Valencia DO Attending MD: Domingo Valencia DO. DATE: 03/05/2018 SUBJECTIVE: She is [place] the cruise ship. She is sitting up in bed, taking her breathing treatment. She is feeling a little bit better than yesterday, subtle, but better. She is on albuterol, amitriptyline. HOME MEDICATIONS: Levaquin, Norvasc, Protonix, Pulmicort and Solu-Medrol down to 30 every 12 hours. PHYSICAL EXAMINATION: VITAL SIGNS: Temperature 95, pulse 92, 120/64 blood pressure, 20 respiratory rate, 95% O2 sat on [address] Recinos, the paper roll machine operator said she needs to go on oxygen from the hospital. HEENT: Head atraumatic, normocephalic. Throat is moist. NECK: Supple. HEART: Regular rate. LUNGS: Decreased breath sounds, but better than yesterday. Mild congestion, but clearing. There is loose phlegm and is better than yesterday. ABDOMEN: Soft. EXTREMITIES: No edema. LABORATORY DATA: She has 8.2 white count, 11.2 hemoglobin, 35.6 hematocrit with 343 platelets. She has 140 sodium, potassium is 4, BUN is 18, creatinine 0.6, GFR greater than 60, sugar is 151, calcium is 9. Total bilirubin is 0.2, AST is 26, ALT is 23, alk phos 53, total protein 6.1. ASSESSMENT AND PLAN: I am hoping that in the next 24 hours, I will be able to discharge her. She has to finish out the Levaquin and be put on prednisone when she gets discharged, hopefully tomorrow. I will discuss this with Infectious Disease and Pulmonology and I called in case management to help us with oxygen on discharge and physical therapy to make sure she does not need any wheelchair or anything. She is here for acute chronic obstructive pulmonary disease. Domingo Valencia DO
--- NOTE | 2018-03-05 16:42 | PN ---
Copied To: Sukhwinder Balderrama MD Attending MD: Sukhwinder Balderrama MD. DATE: 03/05/2018 SUBJECTIVE: The patient is in bed, in no acute distress, nontoxic. PHYSICAL EXAMINATION: VITAL SIGNS: Temperature is 98, blood pressure is 120/60, respiratory rate of 18. HEENT: Examination of HEENT is unremarkable. NECK: Supple. LUNGS: Have decreased breath sounds. HEART: Normal S1, S2. ABDOMEN: Soft, nontender. LABORATORY DATA: Laboratory examination reveals a white count of 8.2, hemoglobin 11, platelets of 343. Chemistries are noted and microbiology is noted. Blood cultures are negative. ASSESSMENT AND PLAN: A 72-year-old female with systemic inflammatory response syndrome with acute bronchitis in a patient with emphysema, hypertension, chronic obstructive lung disease, celiac disease, sciatica. On Levaquin, today is day #5. We will discontinue the Levaquin after today's last dose. The patient is still on Solu-Medrol, improving. Sukhwinder Balderrama MD
[2018-03-05] MEDS: CODEINE PO PRN (22:31)
[2018-03-05] MEDS: ACETAMINOPHEN PO PRN (22:31)
[2018-03-06] MEDS: Albuterol-Ipratrop 3 mg / 0.5 (3 ml) UD IH SCH ×3 (02:45→13:42)
[2018-03-06 07:07] LABS: ALB/GLOB RATIO 1.3 (1.1-1.8); ALBUMIN 3.3 g/dL (3.0-4.8); ALT/SGPT 33 U/L (7-56); AST/SGOT 24 U/L (14-36); BLOOD UREA NITROGEN 20 mg/dL (7-21); CALCIUM 8.7 mg/dL (8.4-10.5); GFR AFRICAN-AMERICAN > 60; GFR NON-AFRICAN AMERICAN > 60
[2018-03-06] MEDS: Budesonide 0.5 mg/2 ml Inhal Susp UD IH SCH (07:45)
[2018-03-06 08:00] LABS: MEAN CELL VOLUME 86.4 fl (80.0-105.0); MEAN CORPUSCULAR HEMOGLOBIN 27.7 pg (25.0-35.0); MEAN CORPUSCULAR HGB CONC 32.1 g/dl (31.0-37.0); MEAN PLATELET VOLUME 9.2 fl (7.0-11.0); RBC 3.97 10^6/uL (3.5-6.1); WHITE BLOOD COUNT 7.6 10^3/ul (4.5-11.0)
--- NOTE | 2018-03-06 08:29 | PN ---
Copied To: Quentin Recinos MD Attending MD: Quentin Recinos MD. DATE: 03/06/2018 PULMONARY NOTE SUBJECTIVE: The patient appears comfortable this morning. She is not short of breath at rest. OBJECTIVE: VITAL SIGNS (last noted in the computer): Temperature is 97.9, pulse 92, respirations 18/20, blood pressure 124/67. Oxygen saturation on nasal cannula is 92-95%. HEENT: Normocephalic, atraumatic. No JVD. CARDIOVASCULAR: Positive S1, S2. No S3 gallop. LUNGS: Minimal/less rhonchi. No wheezing this morning. EXTREMITIES: No clubbing, cyanosis or edema. Calves are nontender to palpation. GI: Abdomen is soft, nontender and nondistended. Bowel sounds are positive. SKIN: No acute rash. NEUROLOGIC: Exam limited at the present time. IMPRESSION: 1. Acute bronchitis. 2. Chronic obstructive pulmonary disease - probably advanced. 3. Anemia. 4. Celiac disease. PLAN: The patient appears comfortable this morning. She is not short of breath at rest. She is certainly less dyspneic on exertion. She does state to feeling much better overall. On physical exam, her bronchospasm continues to slowly resolve. In addition, the alveolar-arterial gradient is also less. I will continue with the current nebulizer treatments and low-dose intravenous steroids (decreased yesterday) for now. I did speak with Dr. Valencia, [employer] and the patient at length yesterday. The patient is for probable discharge in the near future. However, she is choosing to go back on the boat and sail home - which will take seven days. I told the patient that I disagree with her decision 100%. In my opinion, the patient should fly home with oxygen, rest at home and follow closely with her certified court/medical interpreter(OZZIE). Taking a seven-day cruise, and being exposed to a multitude of people is certainly not in her best interest. However, she is adamant on her decision. I did wish her well. Clinical status of the patient is significantly improved overall. However, her future status/prognosis does remain guarded. I will discuss the above with Dr. Valencia this morning. Quentin Recinos MD [facility] # [id number] [place]
[2018-03-06 08:34] VITALS: PULSE 81; TEMP 97.1; O2SAT 91
[2018-03-06] MEDS: Pantoprazole 40 mg EC Tab PO SCH (09:44)
[2018-03-06] MEDS: MethylPREDNISolone 40 mg Vial IVP SCH (09:44)
[2018-03-06 09:48] VITALS: BP 117/60
--- NOTE | 2018-03-06 10:32 | PN ---
Copied To: Sukhwinder Balderrama MD Attending MD: Sukhwinder Balderrama MD DATE: 03/06/2018 SUBJECTIVE: The patient is seen earlier today in room 369. She has no fevers, no chills. She is doing much better. PHYSICAL EXAMINATION: VITAL SIGNS: Temperature is 98, blood pressure is 124/60, respiratory rate of 18. HEENT: Unremarkable. NECK: Supple. LUNGS: Have decreased breath sounds. HEART: Normal S1, S2. ABDOMEN: Soft, nontender. LABORATORY DATA: Reveals a white count of 8.2, hemoglobin of 11. BUN of 20 creatinine 0.6. Procalcitonin is less than 0.05. Microbiology reveals the blood cultures to be negative. ASSESSMENT AND PLAN: This is a 72-year-old [place] with systemic inflammatory response syndrome with acute bronchitis and emphysema, hypertension, chronic obstructive lung disease, celiac disease, sciatica, has completed 5 days of Levaquin, currently now off of antibiotics and the patient is on Solu-Medrol. Management as per Dr. Recinos. Sukhwinder Balderrama MD
--- NOTE | 2018-03-07 03:34 | DS ---
Copied To: Domingo Valencia DO Attending MD: Domingo Valencia DO HISTORY OF PRESENT ILLNESS: I know her from the cruise ship. She is here with severe COPD, emphysema and anemia. She is a very sweet lady from [place], was going to go back on the cruise ship. I asked her not to do that and to go home by airplane, but she has never flown. She is scared of flying and she and her are going on the cruise. I told her to go straight to the doctor on the ship, so they get to know each other. She might end up on the cruise ship hospital. She is going to go on albuterol, Advair, Elavil, Norvasc, Protonix, Pulmicort, prednisone 40 for 3 days, 30 for 3 days, 20 for 3 days and 10 for 3 days. She is improved since she has been here, but she is not good enough. I think to go home on such a long cruise ship as opposed to an airplane, but she refuses that and she is good as she is going to get I think at this time so that is why we are discharging her. PHYSICAL EXAMINATION GENERAL: She is comfortable. She is walking. She is eating. She is breathing well at 92% to 95% on room air. VITAL SIGNS: She has a 97.9 temperature, 92 pulse, 124/67 blood pressure, 20 respiratory rate, and room air 95%. HEENT: Head is atraumatic, normocephalic. HEART: Regular rate with decreased breath sounds bilaterally, occasional congestion, but she is coughing it up. It is better than when she came in. ABDOMEN: Soft. EXTREMITIES: No edema. LABORATORY DATA: She has a 8.2 white count, 11.2 hemoglobin, 35.6 hematocrit with 343 platelets. She has a 137 sodium, potassium 4.3, BUN is 20, creatinine 0.6, GFR is greater than 60, sugars 135, calcium is 8.7, phosphorous 3.7, magnesium 2.2, total bili is 0.3, AST is 24, ALT is 33, alk phos 40, total protein 5.8. ASSESSMENT AND PLAN: Labs were good. Pulse ox is good on room air. She has her medications. She has been seen by Infectious Disease, Pulmonary. I discussed with her at length for one time to please take an airplane instead of the cruise ship, she refuses, she is going to go on the cruise ship home. Hopefully, she will be safe. She will go straight to the doctor on the cruise ship for let him know that she is there and this is the situation, so he knows her and hopefully she will not have any problems. She is here for severe COPD, emphysema, anemia and acute bronchitis. Domingo Valencia DO MTDAngie
== END 2018-03-06 13:04 | disposition home or self-care (01) | DRG 191 ==
LOC: ED 06:50 → ERH 08:21 → 3RNO 09:30
PROVIDERS: ADMIT Family Medicine; ATTEND Family Medicine
PROC: 3E0F7GC Introduction of Other Therapeutic Substance into Respiratory Tract, Via Natural or Artificial Opening (ICD-10-PCS; principal; 2018-03-01)
DX: J44.1 Chronic obstructive pulmonary disease with (acute) exacerbation (principal); R65.10 Systemic inflammatory response syndrome (SIRS) of non-infectious origin without acute organ dysfunction; J44.0 Chronic obstructive pulmonary disease with (acute) lower respiratory infection; J20.9 Acute bronchitis, unspecified; D64.9 Anemia, unspecified; K90.0 Celiac disease; I10 Essential (primary) hypertension; M54.30 Sciatica, unspecified side; Z88.0 Allergy status to penicillin; Z87.891 Personal history of nicotine dependence